=== PATIENT | female | born 1930 | race Caucasian/White ===

== ENCOUNTER 2017-04-29 09:53 | Emergency (ER) | payer OTHER ==
[~2017-04-29] VITALS: Ht 162.6 cm; Wt 83.9 kg
[~2017-04-29 09:53] MED LIST: ALLOPURINOL300 M1 PO; ANTIVERT 12.512.5 MG PO; ASPIRIN EC81 M1 PO; CIPRO 250MG250 MG PO; CLOPIDOGREL75 M1 PO; DIOVAN80 M1 PO; FUROSEMIDE40 M1 PO; GLUCOSAMINE &1 EAC1 PO; LIPITOR80 M1 PO; MECLICOT25 MG PO; METFORMIN HCL500 M3 PO; METOPROLOL SUCC25 M1 PO; PEPCID40 MG PO; TYLENOL WITH C1 EACH PO; VITAMIN B-121000 MC3 PO; VITAMIN C500 M6 PO; VITAMIN D32000 UNI1 PO; ZETIA10 MG PO; ZOFRAN4 M1 SL
--- NOTE | 2017-04-29 10:26 | ED GENERAL ADULT ---
History of Present Illness General Chief Complaint: Upper Respiratory Sx/Fever Stated Complaint: COUGH,CONGESTION Source: patient Exam Limitations: no limitations Vital Signs & Intake/Output Vital Signs & Intake/Output Vital Signs Date Time Temp Pulse Resp B/P B/P Pulse O2 O2 Flow FiO2 Mean Ox Delivery Rate 04/29 1421 98.2 85 18 126/86 98 Room Air 04/29 1300 95 04/29 1148 98.8 76 18 115/55 98 Room Air 04/29 1052 98 Room Air 04/29 1050 95 04/29 1002 95.9 72 15 115/66 95 Room Air Room Air Allergies Coded Allergies: NO KNOWN ALLERGIES (09/18/14) Reconcile Medications Albuterol Sulfate (Proair Hfa) 90 MCG HFA.AER.AD 2 PUF INH Q4-6 PRN PRN sob Allopurinol 300 MG TABLET 1 TAB PO DAILY GOUT (Reported) Amoxicillin/Potassium Clav (Augmentin 875-125 Tablet) 875 MG-125 MG TABLET 1 TAB PO BID pneumonia Ascorbate Calcium (Vitamin C) 500 MG TABLET 1 TAB PO DAILY VITAMIN SUPPORT ( Reported) Aspirin (Ecotrin*) 81 MG TABLET.DR 1 TAB PO DAILY HEART HEALTH (Reported) Atorvastatin Calcium (Lipitor) 80 MG TABLET 1 TAB PO DAILY CHOLESTEROL ( Reported) Benzonatate (Tessalon Perle) 100 MG CAPSULE 1 CAP PO TID PRN cough Cholecalciferol (Vitamin D3) (Vitamin D3) 2,000 UNIT TABLET 1 TAB PO DAILY VITAMIN SUPPORT (Reported) Clopidogrel Bisulfate (Clopidogrel) 75 MG TABLET 1 TAB PO DAILY BLOOD THINNER (Reported) Cyanocobalamin (Vitamin B-12) 1,000 MCG TABLET 1 TAB PO DAILY VITAMIN SUPPORT (Reported) Ezetimibe (Zetia) 10 MG TABLET 1 TAB PO DAILY CHOLESTEROL (Reported) Furosemide 40 MG TABLET 1 TAB PO DAILY WATER RETENTION (Reported) Gluc 2KCL/Chondr/Robin Hy/Hy AC (Glucosamine & Chondroitin Cap) 375 MG-300 MG-175 MG-2 MG CAPSULE 1 TAB PO DAILY SUPPLEMENT (Reported) Metformin HCl 500 MG TABLET 2 TAB PO BID DIABETES (Reported) Metoprolol Succinate 25 MG TAB 1 TAB PO DAILY HTN (Reported) Valsartan (Diovan) 80 MG TABLET 1 TAB PO DAILY HTN (Reported) Triage Note: PT TO ED FOR C/C OF WEAKNESS, SOME SOB, NASAL CONGESTION X 1 WEEK. DENIES CHEST PAIN, NAUSEA, VOMITING. PER PT, LOTS OF MUCUS, STARTED OUT GREEN AND IS NOW YELLOW-WHITE. NO ACUTE DISTRESS NOTED. Triage Nurses Notes Reviewed? yes Onset: Gradual Duration: week(s): (1) Timing: remote history Injury Environment: home Severity: moderate Severity Numbers: 7 Modifying Factors: Improves With: immobilization. Worsens With: movement. Associated Symptoms: cough HPI: Patient is an 86-year-old female with history of diabetes, cardiac stents, hypertension presenting to the emergency Department chief complaint of generalized malaise, weakness and fatigue along with shortness of breath cough and congestion been going on for the past one week. Positive sputum production of yellow phlegm. No sick contacts or recent travel. Positive chills without fevers. She did get the flu vaccine this year. Denies any nausea or vomiting or diarrhea. No abdominal pain. Denies any chest pain. Shortness of breath is worse with coughing. According to daughter she is unable to get up due to weakness and had to help her get changed today which is abnormal for her. Denies any increasing swelling in the lower extremities. Difficult time sleeping due to coughing. (Zulema Schneider) Past History Travel History Traveled to [place] past 21 day No Medical History Any Pertinent Medical History? see below for history Neurological: NONE EENT: MENIERES Cardiovascular: hypertension, hyperlipidemia, myocardial infarction, CARDIAC STENT/angio 1992, 2008 Respiratory: pneumonia Gastrointestinal: GI BLEED C-DIFF Hepatic: NONE Renal: nephrolithiasis Musculoskeletal: gout, CARPAL TUNNEL Psychiatric: NONE Endocrine: diabetes, THYROID BIOPSY Blood Disorders: NONE Cancer(s): SQUAMAOUS CELL SKIN CA NURSING PROGRAM CHAIR/Reproductive: NONE History of MRSA: No History of VRE: No History of CDIFF: No Tetanus Vaccine: 06/26/15 Surgical History Surgical History: hysterectomy, BACK SURGERY Psychosocial History Who do you live with Patient/Self Services at Home None What is your primary language Mongolian Tobacco Use: Quit >30 days ago ETOH Use: denies use Illicit Drug Use: denies illicit drug use Family History Family History, If Any: FATHER SISTER Relation not specified for: FH: diabetes mellitus FH: ischemic heart disease FH: stroke Hx Contributory? No (Zulema Schneider) Review of Systems Review of Systems Constitutional: Reports: see HPI, chills, malaise, weakness. Comments Review of systems: See HPI, All other systems negative. Constitutional, no fever or weight loss HEENT: No visual changes no sore throat Cardiovascular: No chest pain ,palpitation , orthopnea or ankle swelling Skin, no jaundice no rashes Respiratory: No hemoptysis GI: No nausea no vomiting : No dysuria No hematuria Muscle skeletal: no back pain, no neck pain, Neurologic: No numbness no confusion, no headache Psych: No stress anxiety or depression,. Heme/endocrine: No bruising no bleeding no polyuria or polydipsia Immunology: No splenectomy or history of AIDS (Zulema Schneider) Physical Exam Physical Exam General Appearance: well developed/nourished, alert, awake, mild distress Comments: Well-developed well-nourished person in mild respiratory distress. HEENT:Pupils equally round and reactive to light and accommodation. Nose is atraumatic. External auditory canal and Tympanic membranes are mildly congested bilaterally, no erythema. Pharynx normal. No swelling or edema. Neck: Supple, no lymphadenopathy, normal range of motion without pain or tenderness Cardiovascular: Regular rate and rhythms no murmurs rubs or gallops, normal JVP Respiratory: Chest nontender. mild respiratory distress.breath sounds diminished to auscultation bilaterally Extremity: No edema, no calf tenderness to palpation, normal and equal pulses. Neuro: Alert oriented x3 Skin: No appreciable rash on exposed skin, skin is warm and dry. Psych: Mood and affect is normal, memory and judgment is normal. Core Measures ACS in differential dx? Yes CVA/TIA Diagnosis: No Sepsis Present: No Sepsis Focused Exam Completed? No (Zulema Schneider) Progress Differential Diagnoses I considered the following diagnoses in my evaluation of the patient: Pneumonia , bronchitis, anemia, influenza, electrolyte abnormality, CHF, ACS Plan of Care: Orders Procedure Date/time Status Heart Healthy Diet 04/29 D Active LACTIC ACID 04/29 1326 Complete AEROSOL (GEN) 04/29 1303 Complete AEROSOL (GEN) 04/29 1055 Complete BLOOD CULTURE 04/29 1046 Active RAPID VIRAL INFLUENZA A 04/29 1033 Complete Add-on Test (ER Only) 04/29 1027 Active FingerStick- Glucose 04/29 1027 Active TROPONIN LEVEL 04/29 1026 Complete PARTIAL THROMBOPLASTIN TIME 04/29 1026 Complete PROTHROMBIN TIME 04/29 1026 Complete LACTIC ACID 04/29 1026 Complete COMPREHENSIVE METABOLIC PANEL 04/29 1026 Complete CBC WITHOUT DIFFERENTIAL 04/29 1026 Complete B-TYPE NATRIURETIC PEP (BNP) 04/29 1026 Complete ACETONE 04/29 1026 Complete EKG 04/29 1026 Active Laboratory Tests 04/29/17 1311: Lactic Acid 1.7 04/29/17 1053: Anion Gap 13, Estimated GFR > 60, BUN/Creatinine Ratio 25.0, Glucose 188 H, Lactic Acid 2.2 H, Calcium 9.6, Total Bilirubin 1.7 H, AST 28, ALT 14, Alkaline Phosphatase 75, Troponin I 0.02, Ycf-P-Vbrbjgbiudm Pept 441 H, Total Protein 7.1, Albumin 3.3 L, Globulin 3.8, Albumin/Globulin Ratio 0.9 L, PT 13.3 H, INR 1.27 H, APTT 31, CBC w Diff NO MAN DIFF REQ, RBC 3.98 L, MCV 100.8 H, MCH 33.8 H, MCHC 33.6, RDW 14.2, MPV 8.1, Gran % 83.5 H, Lymphocytes % 7.1 L, Monocytes % 6.6, Eosinophils % 2.7, Basophils % 0.1, Absolute Granulocytes 10.9 H, Absolute Lymphocytes 0.9 L, Absolute Monocytes 0.9 H, Absolute Eosinophils 0.4, Absolute Basophils 0, Acetone Level NEGATIVE Microbiology 04/29 1125 BLOOD: Blood Culture - RECD 04/29 1118 BLOOD: Blood Culture - RECD 04/29 1053 NASOPHARYN: Influenza Virus A & B Rapid Smear - COMP Patient is afebrile, ambulatory oxygen saturation was 95%. Patient feeling well and would like to go home and be treated as an outpatient. According to curb 65 patient is low risk with 6% mortality after discharge. Patient be sent home with antibiotics. She did receive IV Rocephin and azithromycin here in the emergency department. She also received 2 breathing treatments which helped immensely. Patient will follow-up with her doctor if she has an appointment on this Thursday which is 2 days from now. Discussed with Dr. Brizuela and he agrees to plan. Diagnostic Imaging: Viewed by Me: Radiology Read. Discussed w/RAD: Radiology Read. Radiology Impression: PATIENT: BENITO MARTIN PRESENT AGE: 86 PATIENT ACCOUNT NO: [id number] : 31 LOCATION: [facility] ORDERING PHYSICIAN: Eric Aguirre MD SERVICE DATE: 04/29/17100 EXAM TYPE: RAD - XRY-CHEST XRAY, TWO VIEWS EXAMINATION: XR CHEST CLINICAL INFORMATION : Cough. Pneumonia. COMPARISON: Chest radiograph 07/26/2013. TECHNIQUE: 2 views of the chest were obtained. FINDINGS: There is patchy airspace opacity in the right mid lung zone which corresponds to the right middle lobe on the lateral view and compatible with developing pneumonia. The lungs are otherwise clear without evidence of pleural effusion or pneumothorax. There are atheromatous calcifications in the aorta. There are multilevel degenerative changes in the thoracic spine. There are degenerative changes at both shoulders. 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 IMPRESSION: Developing pneumonia in the right middle lobe. Initial ED EKG: sinus rhythm at 66 bpm, first-degree AV block Geovanna T abnormalities inferiorly Prior EKG: unchanged (Zulema Schneider) Departure Departure Time of Disposition: 1231 Disposition: HOME OR SELF CARE Condition: Stable Clinical Impression Primary Impression: Pneumonia Qualifiers: Pneumonia type: due to unspecified organism Laterality: right Lung location: middle lobe of lung Qualified Code: J18.1 - Lobar pneumonia, unspecified organism Referrals: Alexus MENSAH,Vinod Miller (PCP/Family) Additional Instructions: Follow-up with your primary care physician on Thursday, call to make an appointment. If he were unable to get into see her primary care physician follow-up in the emergency department for a recheck. Increase fluids. Take antibiotics as prescribed. Use Tessalon Perles as prescribed for cough. Use Pro Air inhaler to help with shortness of breath. If he develop any fevers worsening shortness of breath or worsening cough or concerns please return the emergency Department immediately. Departure Forms: Customer Survey General Discharge Information Prescriptions: Current Visit Scripts Amoxicillin/Potassium Clav (Augmentin 875-125 Tablet) 1 TAB PO BID #20 TAB Benzonatate (Tessalon Perle) 1 CAP PO TID PRN cough #30 CAP Albuterol Sulfate (Proair Hfa) 2 PUF INH Q4-6 PRN PRN sob #1 INHAL (Zulema Schneider) PA/SODA MAKER Co-Sign Statement Statement: ED Attending supervision documentation- [X] I saw and evaluated the patient. I have also reviewed all the pertinent lab results and diagnostic results. I agree with the findings and the plan of care as documented in the PA's/SODA MAKER's documentation. [X] I have reviewed the ED Record and agree with the PA's/SODA MAKER's documentation. [] Additions or exceptions (if any) to the PAs/SODA MAKER's note and plan are summarized below: [] (Timothy MENSAH,Eric Cabrera) Critical Care Note Critical Care Note Critical Care Time: non-applicable (Jerardo LAKHANI,Zulema)
--- NOTE | 2017-04-29 10:41 | RADIOLOGY REPORT ---
EXAMINATION: XR CHEST CLINICAL INFORMATION: Cough. Pneumonia. COMPARISON: Chest radiograph 07/26/2013. TECHNIQUE: 2 views of the chest were obtained. FINDINGS: There is patchy airspace opacity in the right mid lung zone which corresponds to the right middle lobe on the lateral view and compatible with developing pneumonia. The lungs are otherwise clear without evidence of pleural effusion or pneumothorax. There are atheromatous calcifications in the aorta. There are multilevel degenerative changes in the thoracic spine. There are degenerative changes at both shoulders. 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 IMPRESSION: Developing pneumonia in the right middle lobe.
[2017-04-29] MEDS ORDERED: VITAMIN C500 M6 PO (10:43)
[2017-04-29] MEDS ORDERED: ZETIA10 M1 PO (10:45)
[2017-04-29 11:04] LABS: ABSOLUTE BASOPHIL COUNT 0 /CUMM (0.0-0.2); ABSOLUTE EOSINOPHIL COUNT 0.4 /CUMM (0.0-0.7); ABSOLUTE GRANULOCYTE CT 10.9 /CUMM (1.4-6.5); ABSOLUTE LYMPH COUNT 0.9 /CUMM (1.2-3.4); ABSOLUTE MONOCYTE COUNT 0.9 /CUMM (0.10-0.60); BASOPHIL % 0.1 % (0.0-2.0); EOSINOPHIL % 2.7 % (0-5); HEMATOCRIT 40.1 % (37-47); MEAN CORPUSCULAR HGB 33.8 PG (27.0-31.0); MEAN CORPUSCULAR HGB CONC 33.6 G/DL (33.0-37.0); MEAN CORPUSCULAR VOLUME 100.8 FL (81.0-99.0); MEAN PLATELET VOLUME 8.1 FL (7.4-10.4); PLATELET COUNT 186 /CUMM (130-400); RBC DISTRIBUTION WIDTH 14.2 % (11.5-14.5); RED BLOOD CELL CT 3.98 /CUMM (4.20-5.40)
[2017-04-29 11:22] LABS: PT 13.3 SEC (9.4-12.5); PTT 31 SEC (25-37)
[2017-04-29 11:29] LABS: GRANULOCYTE % 83.5 % (42.2-75.2)
[2017-04-29] MEDS ORDERED: AUGMENTIN 875-1 EACH PO (12:34)
[2017-04-29] MEDS ORDERED: TESSALON PERLE100 M1 PO (12:34)
[2017-04-29] MEDS ORDERED: PROAIR HFA8.5 GM INH (12:34)
[2017-04-29 14:21] VITALS: BP 126/86
== END 2017-04-29 14:21 ==
LOC: ERH 09:53
PROVIDERS: Physician Assistant
DX: J18.9 Pneumonia, unspecified organism (principal); Z87.891 Personal history of nicotine dependence
CPT/HCPCS: 71046; 87040; 87804; 87804-59; 93005; 93010; 96374; 96375; J0456; J0696; J7040; J7060